=== PATIENT | male | born 1970 | race Two or more races ===

== ENCOUNTER 2017-12-09 10:41 | Outpatient (CLI) | payer OTHER ==
[~2017-12-09 10:41] MED LIST: ATIVAN0.5 M1 PO; LUBRICANT DRY E15 ML OP; RESTORIL30 M1 PO; ZOLOFT25 MG PO
== END 2017-12-09 10:51 | disposition home or self-care (01) ==
LOC: NUCLEAR 10:41
DX: R31.21 Asymptomatic microscopic hematuria (principal); N13.4 Hydroureter
CPT/HCPCS: 78708; A9539; J1940

== ENCOUNTER 2018-03-27 08:22 | Outpatient (CLI) | payer OTHER | END 2018-03-27 08:35 | disposition home or self-care (01) | LOC: TOM 08:22 → SONOGRAMA 08:22 → TOM 08:35 | DX: N20.0 Calculus of kidney (principal); R31.29 Other microscopic hematuria ==

== ENCOUNTER 2018-04-13 05:20 | Day surgery (SDC) | payer OTHER ==
[~2018-04-13 05:20] MED LIST changes: +BACTRIM 400-801 EACH PO; +CALTRATE+D3 PL1 EACH PO; +MILLIPRED5 MG PO; +PHENAZOPYRIDIN200 MG PO; +VITAMIN D310000 UNIT PO
== END 2018-04-13 13:10 | disposition home or self-care (01) ==
LOC: CIR.AMB 05:20
DX: N13.5 Crossing vessel and stricture of ureter without hydronephrosis (principal)

== ENCOUNTER 2018-05-25 13:07 | Outpatient (CLI) | payer OTHER | END 2018-05-25 14:34 | disposition home or self-care (01) | LOC: TOM 13:07 | DX: N13.4 Hydroureter (principal) ==

== ENCOUNTER 2018-07-08 07:04 | Outpatient (CLI) | payer OTHER | END 2018-07-08 07:14 | disposition home or self-care (01) | LOC: TOM 07:04 | DX: R31.9 Hematuria, unspecified (principal); N20.0 Calculus of kidney ==

== ENCOUNTER 2018-09-11 07:17 | Outpatient (CLI) | payer OTHER | END 2018-09-11 07:28 | disposition home or self-care (01) | LOC: TOM 07:17 | DX: N20.0 Calculus of kidney (principal) ==

== ENCOUNTER 2018-12-02 11:40 | Outpatient (CLI) | payer OTHER | END 2018-12-02 12:30 | disposition home or self-care (01) | LOC: NUCLEAR 11:40 | DX: N13.4 Hydroureter (principal); R31.21 Asymptomatic microscopic hematuria | CPT/HCPCS: 78708; A9539; J1940 ==

== ENCOUNTER → 2019-03-15 | Outpatient (CLI) | payer OTHER | END | disposition home or self-care (01) | LOC: NUCLEAR 10:00 | DX: N13.4 Hydroureter (principal) | CPT/HCPCS: 78708; A9539; J1940 ==

== ENCOUNTER 2019-10-04 07:17 | Outpatient (CLI) | payer OTHER ==
[2019-10-20] MEDS ORDERED: LIPITOR40 MG PO (10:24)
[2019-10-20] MEDS ORDERED: ZOVIRAX400 M1 PO (10:24)
[2019-10-20] MEDS ORDERED: SIROLIMUS0.5 MG PO (10:24)
== END 2019-10-04 07:20 | disposition home or self-care (01) ==
LOC: TOM 07:17
DX: N20.0 Calculus of kidney (principal)

== ENCOUNTER 2019-10-04 07:45 | Outpatient (CLI) | payer OTHER ==
[2019-10-20] MEDS ORDERED: LIPITOR40 MG PO (10:24)
[2019-10-20] MEDS ORDERED: ZOVIRAX400 M1 PO (10:24)
[2019-10-20] MEDS ORDERED: SIROLIMUS0.5 MG PO (10:24)
== END 2019-10-04 10:00 | disposition home or self-care (01) ==
LOC: NUCLEAR 07:45
DX: N13.30 Unspecified hydronephrosis (principal)
CPT/HCPCS: 78708; A9539; J1940

== ENCOUNTER 2019-11-05 08:50 | Day surgery (SDC) | payer OTHER ==
[~2019-11-05 08:50] MED LIST changes: +LIPITOR40 MG PO; +SIROLIMUS0.5 MG PO; +ZOVIRAX400 M1 PO
== END 2019-11-05 18:45 | disposition home or self-care (01) ==
LOC: CIR.AMB 08:50
DX: N13.1 Hydronephrosis with ureteral stricture, not elsewhere classified (principal)

== ENCOUNTER 2020-11-22 07:05 | Outpatient (CLI) | payer OTHER | END 2020-11-22 07:10 | disposition home or self-care (01) | LOC: TOM 07:05 | PROVIDERS: ATTEND Urology | DX: Q61.02 Congenital multiple renal cysts (principal); N35.819 Other urethral stricture, male, unspecified site; R31.21 Asymptomatic microscopic hematuria; N13.4 Hydroureter | CPT/HCPCS: 74177; Q9965 ==

== ENCOUNTER 2020-12-11 05:45 | Day surgery (SDC) | payer OTHER | END 2020-12-11 21:05 | disposition home or self-care (01) | LOC: CIR.AMB 05:45 | PROVIDERS: ATTEND Urology | DX: N13.2 Hydronephrosis with renal and ureteral calculous obstruction (principal); Z20.828 Contact with and (suspected) exposure to other viral communicable diseases ==

== ENCOUNTER 2021-04-27 06:52 | Day surgery (SDC) | payer OTHER ==
[~2021-04-27 06:52] MED LIST changes: +TENORMIN25 MG PO
== END 2021-04-27 17:50 | disposition home or self-care (01) ==
LOC: CIR.AMB 06:52
PROVIDERS: ATTEND Urology
DX: N13.4 Hydroureter (principal); Z20.822 Contact with and (suspected) exposure to COVID-19